=== PATIENT | male | born 1995 | race Caucasian/White ===

== ENCOUNTER 2017-08-03 21:43 | Emergency (ER) | payer MEDICAID ==
[2017-08-03 21:51] VITALS: TEMP 96.6
[2017-08-03 22:28] VITALS: BP 119/68; PULSE 83; RESP 15; O2SAT 96
== END 2017-08-03 22:24 | disposition home or self-care (01) | DRG 918 ==
LOC: ED 21:43
DX: T42.6X1A Poisoning by other antiepileptic and sedative-hypnotic drugs, accidental (unintentional), initial encounter (principal)
CPT/HCPCS: 99282

== ENCOUNTER 2017-10-18 10:10 | Emergency (ER) | payer MEDICAID ==
[2017-10-18 10:30] VITALS: RESP 20
[2017-10-18 11:27] VITALS: BP 128/84; PULSE 107; TEMP 98.3; O2SAT 96
== END 2017-10-18 11:24 | disposition home or self-care (01) | DRG 203 ==
LOC: ED 10:10
DX: J20.9 Acute bronchitis, unspecified (principal); F17.200 Nicotine dependence, unspecified, uncomplicated
CPT/HCPCS: 71046; 99282; 99283

== ENCOUNTER 2018-05-05 18:24 | Emergency (ER) | payer MEDICAID ==
[2018-05-05 18:24] VITALS: O2SAT 96
[2018-05-05 18:53] VITALS: TEMP 97.8
[2018-05-05 19:00] LABS: BASOPHILS % (AUTO) 1 % (0-3); EOSINOPHILS % (AUTO) 3 % (0-9); HEMATOCRIT 44 % (39-53); HEMOGLOBIN 14.7 gm/dl (13.5-17.7); MEAN CORPUSCULAR HEMOGLOBIN 27.7 pg (27.0-32.0); MEAN CORPUSCULAR HGB CONC 33.6 gm/dl (32.0-36.0); MEAN CORPUSCULAR VOLUME 83 fL (80-100); MONOCYTES % (AUTO) 4.7 % (0-12); NEUTROPHILS % (AUTO) 66.9 % (37-80)
[2018-05-05 19:11] LABS: ALBUMIN 3.7 gm/dl (3.4-5.0); BILIRUBIN,TOTAL 0.4 mg/dl (0.2-1.0); CALCIUM 8.1 mg/dl (8.5-10.1); CARBON DIOXIDE 24.2 mEq/L (21-32); CREATININE 0.89 mg/dl (0.80-1.30); POTASSIUM 3.4 mMol/L (3.5-5.1)
[2018-05-05 19:22] LABS: INFLUENZA A NEGATIVE (NEGATIVE); INFLUENZA B NEGATIVE (NEGATIVE)
[2018-05-05 20:27] VITALS: BP 131/86; PULSE 108; RESP 19
== END 2018-05-05 20:22 | disposition home or self-care (01) | DRG 153 ==
LOC: ED 18:24
DX: J06.9 Acute upper respiratory infection, unspecified (principal); R42 Dizziness and giddiness; R05 Cough
CPT/HCPCS: 36415; 71046; 80053; 85025; 87804; 93005; 99283